=== PATIENT | male | born 1960 | race Caucasian/White ===

== ENCOUNTER 2020-09-25 18:40 | Inpatient (IN) | payer OTHER ==
--- NOTE | 2020-09-25 20:25 | PDOC.HHP ---
Hospitalist HPI - History of Present Illness Shortness of breath History of Present Illness: Mr. Bashir is a 60-year-old male patient with a history of borderline diabetes mellitus who presents with a week history of ongoing shortness of breath. He notes having gone out on a hunting trip with his friends 1 of whom had Covid eventually the whole group developed symptoms. He has been having more shortness of breath and coughleading him to visit the [facility] today. At presentation that his BP was 142/82 pulse 97 respiratory 25 saturating at 94% on 4 L oxygen. His temperature was 99.2. His CBC was generally unremarkable, he however had mild thrombocytopenia of 100, chemistry showed glucose of 201 otherwise also generally unremarkable. Serology was positive for Covid. His chest x-ray showed minimal infiltrate around the right hilum otherwise generally unremarkable. He was started on ceftriaxone, dexamethasone aspirin and received a liter of normal saline. He was then transferred here for higher level care. He has generally remained stable since his been here Hospitalist team was consulted for admission. Hospitalist ROS - Review of Systems Constitutional: denies: fever, chills, sweats, weakness ENT: denies: ear pain, ear discharge Respiratory: reports: cough, dry, shortness of breath, SOB with excertion. denies: hemoptysis Cardiovascular: denies: chest pain, palpitations, orthopnea, paroxysmal noc. dyspnea Gastrointestinal: reports: diarrhea. denies: nausea, vomiting, abdominal pain Genitourinary: denies: dysuria, frequency, incontinence, hematuria Neurological: denies: weakness, numbness, incoordination All other systems reviewed; all pertinent +/- noted in HPI/Subj - Medication Medications: No chronic medications. No known drug allergies Hospitalist History - Past Medical History Other Medical History: Borderline diabetes mellitus - Past Surgical History Past Surgical History: reports: no pertinent history - Family History Family History: reports: no pertinent history - Social History Smoking Status: Never smoker Alcohol: reports: None Living Situation: With Family Activity level: independent ambulation - Exam General Appearance: awake alert Eye: PERRL, anicteric sclera Neck: supple, symmetric, no JVD Heart: RRR, no murmur, no gallops, no rubs Respiratory: CTAB, no wheezes, no rales, no ronchi Respiratory - other findings: Requiring 4 L oxygen by nasal cannula Gastrointestinal: soft, non-tender, non-distended, normal bowel sounds Extremities: no cyanosis, no clubbing, no edema Neurological: cranial nerve grossly intact, normal sensation to touch, no focal deficits Psychiatric: normal affect, normal behavior, A&O x 3 Hospitalist Results - Labs Result Diagrams: 09/27/20 06:12 09/27/20 06:12 Hospitalist H&P A/P - Plan Plan: This is a 60-year-old male patient otherwise previously healthy presenting with worsening shortness of breath of 7 days duration. Symptoms started after he went on a camping trip with his friends out of work C ovid. His Covid test is currently positive. Acute hypoxic respiratory failure Likely secondary to Covid Continue on oxygenon 4 L will wean down Continue monitoring Pneumonia due to Covid Received dexamethasonewe will continue We will start zinc and vitamin C Check D-dimer, CRP and ferritin Monitor Thrombocytopenia This is mildlikely reactive due to Covid We will monitor [id number] on arrival Possibly stress response Recent A1c 5.7 on 08/15/2020 Continue glucose monitoring. VT prophylaxisLovenox CODE STATUSfull code
--- NOTE | 2020-09-25 22:27 | PDOC.FMACP ---
Advance Care Planning - Note Summary: Advanced Care Planning was discussed. The diagnosis, prognosis and goals of care were discussed. Surrogate decision-maker is his . He is full code
[2020-09-25] MEDS ORDERED: Ondansetron PF 4 MG/2 ML Vial IVP PRN (23:00)
[2020-09-25] MEDS ORDERED: Acetaminophen 325 MG TAB PO PRN (23:00)
[2020-09-25] MEDS ORDERED: Ondansetron ODT 4 MG TAB SL PRN (23:00)
[2020-09-26 05:30] LABS: Band 7 % (5-11); Hemoglobin 15.3 g/dL (14.0-18.0); Lymphocytes 28 % (21-51); MDiff Complete? YES; Mean Corpuscular HGB CONC 33.5 g/dL (32.0-36.0); Mean Corpuscular Hemoglobin 30.1 pg (27.0-31.0); Mean Platelet Volume 7.4 fL (7.4-10.4); Monocytes 6 % (0-10); Myelocyte 1 % (0-0); Neutrophil 57 % (42-75); Platelet Count 120 thou/uL (130-400); RBC Distribution Width 12.6 % (11.5-14.5); Reactive Lymphocytes 1 % (0-10); Red Blood Cell (RBC) Count 5.07 mill/uL (4.70-6.10); White Blood Cell (WBC) Count 3.9 thou/uL (4.8-10.8)
[2020-09-26 05:33] LABS: Anion Gap 15 mmol/L (10-20); BUN (Urea Nitrogen) 22 mg/dL (8.4-25.7); Calc. Creatinine Clearance 0 mL/min (70-130); Calcium 8.9 mg/dL (7.8-10.44); Carbon Dioxide 25 mmol/L (23-31); Chloride 104 mmol/L (98-107); Glucose 270 mg/dL (80-115); Potassium 4.1 mmol/L (3.5-5.1); Sodium 140 mmol/L (136-145)
[2020-09-26 08:11] LABS: ALT (SGPT) 32 U/L (8-55); AST (SGOT) 31 U/L (5-34); Albumin 3.8 g/dL (3.4-4.8); Alkaline Phosphatase 65 U/L (40-110); Bilirubin, Direct 0.3 mg/dL (0.1-0.3); Bilirubin, Total 0.6 mg/dL (0.2-1.2); Protein, Total 6.7 g/dL (5.8-8.1)
--- NOTE | 2020-09-26 08:18 | PQF ---
CLINICAL DOCUMENTATION CLARIFICATION FORM: Dear Dr. Eric Lemus Date: 09-26-20 Please exercise your independent, professional judgment in responding to the clarification form. Clinical indicators are provided on the bottom of this form for your review. Please check appropriate box(es): [ ] Viral Sepsis due to COVID-19/PNA [ ] Severe Viral Sepsis due to COVID-19/PNA w/ Acute Hypoxic Respiratory [ ] COVID-19/PNA only no Sepsis [ ] SIRS d/t non-infectious source with acute hypoxic respiratory failure [ ] Other diagnosis [ ] Unable to determine For continuity of documentation, please document condition throughout progress notes and discharge summary. Thank You. To be completed by CDI/Coding staff for physician review: CLINICAL INDICATORS - SIGNS / SYMPTOMS / LABS / RESULTS AND LOCATION IN [facility]. H&P ([facility]): * Transferred from ED [facility] * P 97, RR 25 * O2 sat 94% on 4LNC * T 99.2 * Glucose 201 *Thrombocytopenia 100 * SOB 7 day duration * thrombocytopenia r/t COVID; hyperglycemia; RISK FACTORS / RESULTS AND LOCATION IN [place] [address] H&P ([facility]): * PNA D/T COVID positive * Borderline diabetes mellitus *Acute hypoxic respiratory failure TREATMENTS / RESULTS AND LOCATION IN [place] [address] H&P ([facility]) *transferred from [facility] ED for higher level of care * Oxygen 4LNC continue to monitor *Received dexamethasone will continue *start zinc and vitamin C CDS Signature: Amy Pickett RN, CCDS Phone #: [phone] [email or web address] This is a permanent part of the Medical Record [facility]
[2020-09-26 08:29] VITALS: BMI 37.0
[2020-09-26] MEDS ORDERED: Enoxaparin Sodium 40 MG/0.4 ML SYRINGE ONE (09:12)
[2020-09-26] MEDS ORDERED: Dexamethasone 4 mg/ml Vial ONE (09:12)
[2020-09-26] MEDS ORDERED: REMDESIVIR (EUA) 200 MG in Sodium Chloride 0.9% 250 ML 210 ML IV SCH (09:45)
[2020-09-26] MEDS: Enoxaparin Sodium 40 MG/0.4 ML SYRINGE SC SCH (10:01)
[2020-09-26] MEDS: Cholecalciferol (Vitamin D3) 400 UNITS TAB PO SCH (10:01)
[2020-09-26] MEDS: Zinc Sulfate 220 MG CAP PO SCH (10:01)
[2020-09-26] MEDS: Ascorbic Acid 500 mg Chewable Tablet PO SCH (10:01)
[2020-09-26] MEDS: Dexamethasone 4 mg/ml Vial SLOW IVP SCH (10:01)
--- NOTE | 2020-09-26 17:55 | PDOC.HOSPP ---
- Subjective Encounter Date: 09/26/20 Encounter Time: 13:00 Subjective: Patient seen for follow-up regarding acute toxic respiratory failure. He reports feeling better. - Objective Vital Signs & Weight: Weight Weight 250 lb 14.177 oz Result Diagrams: 09/26/20 04:38 09/26/20 04:38 Additional Labs: Labs and MAR reviewed by me Hospitalist ROS - Review of Systems Constitutional: reports: weakness. denies: fever, chills, sweats, malaise Respiratory: reports: cough, SOB with excertion, sputum. denies: dry, shortness of breath, hemoptysis, pleuritic pain, wheezing Cardiovascular: denies: chest pain, palpitations, orthopnea, paroxysmal noc. dyspnea, edema, light headedness - Medication Medications: Active Medications Generic Name Dose Route Start Last Admin Trade Name Freq PRN Reason Stop Dose Admin Ascorbic Acid 1,000 mg 09/26/20 09:00 09/26/20 10:01 Ascorbic Acid 500 Mg Chewable Tablet PO 1,000 mg DAILY JAIR Administration Cholecalciferol 400 units 09/26/20 09:00 09/26/20 10:01 Cholecalciferol (Vitamin D3) 400 Units Tab PO 400 units DAILY JAIR Administration Dexamethasone 8 mg 09/26/20 09:00 09/26/20 10:01 Dexamethasone 4 Mg/Ml Vial SLOW IVP 8 mg DAILY JAIR Administration Enoxaparin Sodium 40 mg 09/26/20 09:00 09/26/20 10:01 Enoxaparin Sodium 40 Mg/0.4 Ml Syringe SC 40 mg 0900 JAIR Administration Zinc Sulfate 220 mg 09/26/20 09:00 09/26/20 10:01 Zinc Sulfate 220 Mg Cap PO 220 mg DAILY JAIR Administration - Exam General Appearance: awake alert Eye: anicteric sclera ENT: moist mucosa Neck: supple Heart: RRR Respiratory: rales, rhonchi Gastrointestinal: soft, non-tender Skin: no rashes Psychiatric: normal affect, normal behavior Hosp A/P - Plan Assessment/plan: Acute hypoxic respiratory failure Secondary to COVID-19 infection. Continue supplemental oxygen as needed. Continue to observe. Pneumonia due to Covid Continue dexamethasone. Continue zinc and vitamin C Start remdesivir. I offered patient convalescent plasma. He is trying to decide. Thrombocytopenia Monitor platelet counts. [id number] on arrival Continue glucose monitoring. Start insulin if needed.
[2020-09-27 06:47] LABS: #Lymphocytes 1.2 thou/uL (1.20-3.40); #Monocytes 0.7 thou/uL (0.11-0.59); #Neutrophils 9.9 thou/uL (1.40-6.50); %Basophils 0.1 % (0.0-1.0); %Eosinophils 0.1 % (0.0-10.0); %Lymphocytes 9.8 % (21.0-51.0); %Monocytes 6.1 % (0.0-10.0); Mean Corpuscular HGB CONC 33.5 g/dL (32.0-36.0); Mean Corpuscular Hemoglobin 30.3 pg (27.0-31.0); Mean Corpuscular Volume 90.4 fL (78.0-98.0); Mean Platelet Volume 7.7 fL (7.4-10.4); Platelet Count 154 thou/uL (130-400); RBC Distribution Width 12.5 % (11.5-14.5); Red Blood Cell (RBC) Count 4.96 mill/uL (4.70-6.10); White Blood Cell (WBC) Count 11.8 thou/uL (4.8-10.8)
[2020-09-27 07:10] LABS: ALT (SGPT) 29 U/L (8-55); AST (SGOT) 34 U/L (5-34); Albumin 3.7 g/dL (3.4-4.8); Alkaline Phosphatase 65 U/L (40-110); BUN (Urea Nitrogen) 24 mg/dL (8.4-25.7); Bilirubin, Total 0.5 mg/dL (0.2-1.2); Calc. Creatinine Clearance 121 mL/min (70-130); Calcium 8.7 mg/dL (7.8-10.44); Chloride 107 mmol/L (98-107); Glucose 177 mg/dL (80-115); Potassium 4.4 mmol/L (3.5-5.1); Protein, Total 6.7 g/dL (5.8-8.1); Sodium 141 mmol/L (136-145)
[2020-09-27 07:17] LABS: Carbon Dioxide 20 mmol/L (23-31)
[2020-09-27 08:13] LABS: Anion Gap 18 mmol/L (10-20)
[2020-09-27] MEDS: Ascorbic Acid 500 mg Chewable Tablet PO SCH (10:12)
[2020-09-27] MEDS: Cholecalciferol (Vitamin D3) 400 UNITS TAB PO SCH (10:13)
[2020-09-27] MEDS: Dexamethasone 4 mg/ml Vial SLOW IVP SCH (10:13)
[2020-09-27] MEDS: Zinc Sulfate 220 MG CAP PO SCH (10:13)
[2020-09-27] MEDS: Enoxaparin Sodium 40 MG/0.4 ML SYRINGE SC SCH (10:14)
[2020-09-27] MEDS: REMDESIVIR (EUA) 100 MG in Sodium Chloride 0.9% 250 ML 230 ML IV SCH (10:19)
[2020-09-27] MEDS ORDERED: Dextrose 50% Abboject 50 ML SYRINGE SLOW IVP PRN (19:22)
[2020-09-27] MEDS ORDERED: Dextrose 5% in Water 1,000 ML IV PRN (19:22)
--- NOTE | 2020-09-27 19:23 | PDOC.HOSPP ---
- Subjective Encounter Date: 09/27/20 Encounter Time: 10:00 Subjective: Patient seen for follow-up of acute respiratory failure with hypoxia. Denies chest pain or shortness of breath. Reports cough. - Objective Vital Signs & Weight: Vital Signs (12 hours) Temp Pulse Resp BP Pulse Ox 09/27/20 16:00 98.2 F 63 18 131/69 97 09/27/20 13:42 98.1 F 86 20 151/81 H 94 L 09/27/20 08:25 98.1 F 71 18 149/77 H 95 09/27/20 08:00 95 Weight Weight 250 lb 14.177 oz Result Diagrams: 09/27/20 06:12 09/27/20 06:12 Additional Labs: I reviewed patient's labs and MAR Hospitalist ROS - Review of Systems Respiratory: reports: cough, SOB with excertion, sputum. denies: dry, shortness of breath, hemoptysis, pleuritic pain, wheezing Cardiovascular: denies: chest pain, palpitations, orthopnea, paroxysmal noc. dyspnea, edema, light headedness - Medication Medications: Active Medications Generic Name Dose Route Start Last Admin Trade Name Freq PRN Reason Stop Dose Admin Ascorbic Acid 1,000 mg 09/26/20 09:00 09/27/20 10:12 Ascorbic Acid 500 Mg Chewable Tablet PO 1,000 mg DAILY JAIR Administration Cholecalciferol 400 units 09/26/20 09:00 09/27/20 10:13 Cholecalciferol (Vitamin D3) 400 Units Tab PO 400 units DAILY JAIR Administration Dexamethasone 8 mg 09/26/20 09:00 09/27/20 10:13 Dexamethasone 4 Mg/Ml Vial SLOW IVP 8 mg DAILY JAIR Administration Enoxaparin Sodium 40 mg 09/26/20 09:00 09/27/20 10:14 Enoxaparin Sodium 40 Mg/0.4 Ml Syringe SC 40 mg 0900 JAIR Administration Remdesivir 100 mg/ Sodium 250 mls @ 250 mls/hr 09/27/20 10:00 09/27/20 10:19 Chloride IV 09/30/20 10:59 250 mls 1000 JAIR Administration Zinc Sulfate 220 mg 09/26/20 09:00 09/27/20 10:13 Zinc Sulfate 220 Mg Cap PO 220 mg DAILY JAIR Administration - Exam General Appearance: awake alert Eye: anicteric sclera ENT: normocephalic atraumatic, no oropharyngeal lesions Neck: supple Heart: RRR Respiratory: rhonchi Gastrointestinal: soft, non-tender Skin: no rashes Psychiatric: normal affect, normal behavior Hosp A/P - Plan Assessment/plan: Acute hypoxic respiratory failure Patient is clinically improving, oxygen as needed. Pneumonia due to Covid Continue dexamethasone and remdesivir. Patient is on zinc and vitamin C Thrombocytopenia Monitor platelet counts. Start Accu-Cheks and insulin sliding scale. Continue glucose monitoring. Start insulin if needed. -viral sepsis due to COVID-19 pneumonia, present on admission
[2020-09-28 06:34] LABS: ALT (SGPT) 30 U/L (8-55); AST (SGOT) 29 U/L (5-34); Albumin 3.8 g/dL (3.4-4.8); Alkaline Phosphatase 72 U/L (40-110); Bilirubin, Direct 0.3 mg/dL (0.1-0.3); Bilirubin, Total 0.6 mg/dL (0.2-1.2); Protein, Total 6.7 g/dL (5.8-8.1)
[2020-09-28] MEDS: Ascorbic Acid 500 mg Chewable Tablet PO SCH (09:24)
[2020-09-28] MEDS: Cholecalciferol (Vitamin D3) 400 UNITS TAB PO SCH (09:24)
[2020-09-28] MEDS: Dexamethasone 4 mg/ml Vial SLOW IVP SCH (09:26)
[2020-09-28] MEDS: Zinc Sulfate 220 MG CAP PO SCH (09:26)
[2020-09-28] MEDS: Enoxaparin Sodium 40 MG/0.4 ML SYRINGE SC SCH (09:26)
[2020-09-28] MEDS: REMDESIVIR (EUA) 100 MG in Sodium Chloride 0.9% 250 ML 230 ML IV SCH (12:43)
--- NOTE | 2020-09-28 16:47 | PDOC.HOSPP ---
- Subjective Encounter Date: 09/28/20 Encounter Time: 09:30 Subjective: Patient seen for follow-up regarding COVID-19 pneumonia. He denies chest pain or shortness of breath. - Objective Vital Signs & Weight: Vital Signs (12 hours) Temp Pulse Resp BP Pulse Ox 09/28/20 11:54 97.8 F 66 20 143/83 H 92 L 09/28/20 08:00 96 09/28/20 07:00 97.7 F 61 18 156/77 H 96 Weight Weight 250 lb 14.177 oz I&O: 09/27/20 09/28/20 09/29/20 06:59 06:59 06:59 Intake Total 610 Balance 610 Result Diagrams: 09/27/20 06:12 09/27/20 06:12 Additional Labs: Accuchecks 09/28/20 09/28/20 09/28/20 16:29 11:21 05:28 POC Glucose 273 H 202 H 202 H 09/27/20 20:49 POC Glucose 241 H Labs and MAR reviewed by oh Hospitalist ROS - Review of Systems Respiratory: reports: cough, dry. denies: shortness of breath, hemoptysis, SOB with excertion, pleuritic pain, sputum, wheezing Cardiovascular: denies: chest pain, palpitations, orthopnea, paroxysmal noc. dyspnea, edema, light headedness - Medication Medications: Active Medications Generic Name Dose Route Start Last Admin Trade Name Freq PRN Reason Stop Dose Admin Ascorbic Acid 1,000 mg 09/26/20 09:00 09/28/20 09:24 Ascorbic Acid 500 Mg Chewable Tablet PO 1,000 mg DAILY JAIR Administration Cholecalciferol 400 units 09/26/20 09:00 09/28/20 09:24 Cholecalciferol (Vitamin D3) 400 Units Tab PO 400 units DAILY JAIR Administration Dexamethasone 8 mg 09/26/20 09:00 09/28/20 09:26 Dexamethasone 4 Mg/Ml Vial SLOW IVP 8 mg DAILY JAIR Administration Enoxaparin Sodium 40 mg 09/26/20 09:00 09/28/20 09:26 Enoxaparin Sodium 40 Mg/0.4 Ml Syringe SC 40 mg 0900 JAIR Administration Remdesivir 100 mg/ Sodium 250 mls @ 250 mls/hr 09/27/20 10:00 09/28/20 12:43 Chloride IV 09/30/20 10:59 250 mls 1000 JAIR Administration Zinc Sulfate 220 mg 09/26/20 09:00 09/28/20 09:26 Zinc Sulfate 220 Mg Cap PO 220 mg DAILY JAIR Administration - Exam General Appearance: awake alert Eye: anicteric sclera ENT: normocephalic atraumatic Neck: supple Heart: RRR Respiratory: CTAB Gastrointestinal: soft, non-tender Skin: no rashes Psychiatric: normal affect, normal behavior Hosp A/P - Plan Assessment/plan: Acute hypoxic respiratory failure Patient continues to need supplemental oxygen Pneumonia due to Covid Continue dexamethasone and remdesivir. Continue zinc and vitamin C Thrombocytopenia Monitor platelet counts. Start Accu-Cheks and insulin sliding scale. Continue glucose monitoring. Start insulin if needed. -viral sepsis due to COVID-19 pneumonia, present on admission
[2020-09-28] MEDS: HumaLOG 300 UNITS/3 ML VIAL SC PRN ×2 (17:29→21:39)
[2020-09-29 06:54] LABS: #Basophils 0.1 thou/uL (0.0-0.2); #Lymphocytes 1.3 thou/uL (1.20-3.40); #Monocytes 0.9 thou/uL (0.11-0.59); #Neutrophils 7.4 thou/uL (1.40-6.50); %Basophils 1.1 % (0.0-1.0); %Eosinophils 0.2 % (0.0-10.0); %Lymphocytes 13.3 % (21.0-51.0); %Monocytes 9.1 % (0.0-10.0); %Neutrophils 76.2 % (42.0-75.0); Hemoglobin 15.1 g/dL (14.0-18.0); Mean Corpuscular HGB CONC 34.1 g/dL (32.0-36.0); Mean Corpuscular Hemoglobin 30.3 pg (27.0-31.0); Mean Corpuscular Volume 88.8 fL (78.0-98.0); Mean Platelet Volume 7.2 fL (7.4-10.4); Platelet Count 182 thou/uL (130-400); RBC Distribution Width 12.3 % (11.5-14.5); Red Blood Cell (RBC) Count 4.98 mill/uL (4.70-6.10); White Blood Cell (WBC) Count 9.7 thou/uL (4.8-10.8)
[2020-09-29 07:13] LABS: ALT (SGPT) 44 U/L (8-55); AST (SGOT) 36 U/L (5-34); Albumin 3.6 g/dL (3.4-4.8); Alkaline Phosphatase 70 U/L (40-110); Anion Gap 16 mmol/L (10-20); BUN (Urea Nitrogen) 29 mg/dL (8.4-25.7); Bilirubin, Direct 0.3 mg/dL (0.1-0.3); Bilirubin, Total 0.8 mg/dL (0.2-1.2); Calc. Creatinine Clearance 120 mL/min (70-130); Calcium 8.6 mg/dL (7.8-10.44); Carbon Dioxide 27 mmol/L (23-31); Chloride 105 mmol/L (98-107); Glucose 195 mg/dL (80-115); Potassium 4.5 mmol/L (3.5-5.1); Protein, Total 6.5 g/dL (5.8-8.1); Sodium 143 mmol/L (136-145)
[2020-09-29] MEDS: Enoxaparin Sodium 40 MG/0.4 ML SYRINGE SC SCH (09:09)
[2020-09-29] MEDS: Zinc Sulfate 220 MG CAP PO SCH (09:10)
[2020-09-29] MEDS: REMDESIVIR (EUA) 100 MG in Sodium Chloride 0.9% 250 ML 230 ML IV SCH (09:10)
[2020-09-29] MEDS: Dexamethasone 4 mg/ml Vial SLOW IVP SCH (09:10)
[2020-09-29] MEDS: Ascorbic Acid 500 mg Chewable Tablet PO SCH (09:10)
[2020-09-29] MEDS: Cholecalciferol (Vitamin D3) 400 UNITS TAB PO SCH (09:16)
[2020-09-29] MEDS: HumaLOG 300 UNITS/3 ML VIAL SC PRN ×3 (11:51→19:41)
--- NOTE | 2020-09-29 18:18 | PDOC.HOSPP ---
- Subjective Encounter Date: 09/29/20 Encounter Time: 10:00 Subjective: Patient seen for follow-up regarding acute hypoxic respiratory failure. Reports feeling better. Reports nonproductive cough. He denies fevers. - Objective Vital Signs & Weight: Vital Signs (12 hours) Temp Pulse Resp BP Pulse Ox 09/29/20 15:40 97.9 F 57 L 18 124/76 97 09/29/20 11:35 65 18 154/84 H 96 09/29/20 11:30 98.0 F 65 20 169/85 H 93 L 09/29/20 09:15 92 L 09/29/20 09:05 16 92 L 09/29/20 08:12 98.0 F 61 18 130/70 92 L Weight Weight 250 lb 14.177 oz I&O: 09/28/20 09/29/20 09/30/20 06:59 06:59 06:59 Intake Total 610 610 Balance 610 610 Result Diagrams: 09/29/20 06:42 09/29/20 06:42 Additional Labs: Accuchecks 09/29/20 09/29/20 09/28/20 16:21 04:14 19:22 POC Glucose 318 H 198 H 331 H Labs and MAR reviewed by ga Hospitalist ROS - Review of Systems Constitutional: denies: fever, chills, sweats, weakness, malaise Respiratory: reports: cough, dry Cardiovascular: denies: chest pain, palpitations, orthopnea, paroxysmal noc. dyspnea, edema, light headedness - Medication Medications: Active Medications Generic Name Dose Route Start Last Admin Trade Name Freq PRN Reason Stop Dose Admin Ascorbic Acid 1,000 mg 09/26/20 09:00 09/29/20 09:10 Ascorbic Acid 500 Mg Chewable Tablet PO 1,000 mg DAILY JAIR Administration Cholecalciferol 400 units 09/26/20 09:00 09/29/20 09:16 Cholecalciferol (Vitamin D3) 400 Units Tab PO 400 units DAILY JAIR Administration Dexamethasone 8 mg 09/26/20 09:00 09/29/20 09:10 Dexamethasone 4 Mg/Ml Vial SLOW IVP 8 mg DAILY JAIR Administration Enoxaparin Sodium 40 mg 09/26/20 09:00 09/29/20 09:09 Enoxaparin Sodium 40 Mg/0.4 Ml Syringe SC 40 mg 0900 JAIR Administration Remdesivir 100 mg/ Sodium 250 mls @ 250 mls/hr 09/27/20 10:00 09/29/20 09:10 Chloride IV 09/30/20 10:59 250 mls 1000 JAIR Administration Insulin Human Lispro 0 units 09/27/20 19:22 09/29/20 16:24 Humalog 300 Units/3 Ml Vial SC 5 unit .MILD SLIDING SCALE PRN Administration Mild Correctional Scale Insulin Human Lispro 0 units 09/28/20 20:17 09/28/20 21:39 Humalog 300 Units/3 Ml Vial SC 4 unit .BEDTIME SLIDING SC PRN Administration Bedtime Correctional Scale Zinc Sulfate 220 mg 09/26/20 09:00 09/29/20 09:10 Zinc Sulfate 220 Mg Cap PO 220 mg DAILY JAIR Administration - Exam General Appearance: awake alert Eye: anicteric sclera ENT: moist mucosa Neck: supple Heart: RRR Respiratory: rhonchi Gastrointestinal: soft Extremities: no clubbing Skin: no rashes Psychiatric: normal affect Hosp A/P - Plan Assessment/plan: Acute hypoxic respiratory failure Patient continues to need supplemental oxygen, will try to wean off of oxygen. Pneumonia due to Covid Patient is on dexamethasone and remdesivir. Last dose of remdesivir will be tomorrow, will reassess at that time. Continue zinc and vitamin C Thrombocytopenia Resolved -viral sepsis due to COVID-19 pneumonia, present on admission
[2020-09-30] MEDS: HumaLOG 300 UNITS/3 ML VIAL SC PRN ×4 (05:45→19:55)
[2020-09-30 06:17] LABS: #Lymphocytes 1.4 thou/uL (1.20-3.40); #Monocytes 0.6 thou/uL (0.11-0.59); #Neutrophils 7.3 thou/uL (1.40-6.50); %Basophils 0.2 % (0.0-1.0); %Eosinophils 0.3 % (0.0-10.0); %Lymphocytes 14.4 % (21.0-51.0); %Monocytes 6.8 % (0.0-10.0); %Neutrophils 78.2 % (42.0-75.0); Hemoglobin 15.5 g/dL (14.0-18.0); Mean Corpuscular HGB CONC 32.9 g/dL (32.0-36.0); Mean Corpuscular Hemoglobin 29.2 pg (27.0-31.0); Mean Corpuscular Volume 88.8 fL (78.0-98.0); Platelet Count 203 thou/uL (130-400); RBC Distribution Width 12.3 % (11.5-14.5); Red Blood Cell (RBC) Count 5.33 mill/uL (4.70-6.10); White Blood Cell (WBC) Count 9.4 thou/uL (4.8-10.8)
[2020-09-30 06:39] LABS: ALT (SGPT) 62 U/L (8-55); AST (SGOT) 39 U/L (5-34); Albumin 3.7 g/dL (3.4-4.8); Alkaline Phosphatase 73 U/L (40-110); Anion Gap 16 mmol/L (10-20); BUN (Urea Nitrogen) 30 mg/dL (8.4-25.7); Bilirubin, Direct 0.4 mg/dL (0.1-0.3); Bilirubin, Total 0.9 mg/dL (0.2-1.2); Calc. Creatinine Clearance 117 mL/min (70-130); Calcium 8.6 mg/dL (7.8-10.44); Carbon Dioxide 27 mmol/L (23-31); Chloride 103 mmol/L (98-107); Glucose 198 mg/dL (80-115); Potassium 4.3 mmol/L (3.5-5.1); Protein, Total 6.6 g/dL (5.8-8.1); Sodium 142 mmol/L (136-145)
[2020-09-30] MEDS: Zinc Sulfate 220 MG CAP PO SCH (07:58)
[2020-09-30] MEDS: Cholecalciferol (Vitamin D3) 400 UNITS TAB PO SCH (07:58)
[2020-09-30] MEDS: Ascorbic Acid 500 mg Chewable Tablet PO SCH (07:58)
[2020-09-30] MEDS: Enoxaparin Sodium 40 MG/0.4 ML SYRINGE SC SCH (07:58)
[2020-09-30] MEDS: Dexamethasone 4 mg/ml Vial SLOW IVP SCH (07:58)
[2020-09-30] MEDS: REMDESIVIR (EUA) 100 MG in Sodium Chloride 0.9% 250 ML 230 ML IV SCH (10:03)
--- NOTE | 2020-09-30 17:05 | PDOC.HOSPP ---
- Subjective Encounter Date: 09/30/20 Encounter Time: 17:03 Subjective: Patient seen for follow-up regarding hypoxic respiratory failure. He reports feeling better. Still needing supplemental oxygen, 2 L/min. - Objective Vital Signs & Weight: Vital Signs (12 hours) Temp Pulse Resp BP Pulse Ox 09/30/20 12:00 61 18 96 09/30/20 08:10 98 09/30/20 08:05 52 L 18 98 09/30/20 08:01 97.9 F 54 L 18 156/83 H 92 L Weight Weight 250 lb 14.177 oz I&O: 09/29/20 09/30/20 10/01/20 06:59 06:59 06:59 Intake Total 610 1230 Balance 610 1230 Result Diagrams: 09/30/20 05:52 09/30/20 05:52 Additional Labs: Accuchecks 09/30/20 09/30/20 09/30/20 16:05 12:21 05:38 POC Glucose 293 H 256 H 195 H 09/29/20 19:27 POC Glucose 278 H I reviewed patient's labs and MAR Hospitalist ROS - Review of Systems Respiratory: reports: cough, dry Cardiovascular: denies: chest pain, palpitations, orthopnea, paroxysmal noc. dyspnea, edema, light headedness Skin: denies: rash, lesions, harish - Medication Medications: Active Medications Generic Name Dose Route Start Last Admin Trade Name Freq PRN Reason Stop Dose Admin Ascorbic Acid 1,000 mg 09/26/20 09:00 09/30/20 07:58 Ascorbic Acid 500 Mg Chewable Tablet PO 1,000 mg DAILY JAIR Administration Cholecalciferol 400 units 09/26/20 09:00 09/30/20 07:58 Cholecalciferol (Vitamin D3) 400 Units Tab PO 400 units DAILY JAIR Administration Dexamethasone 8 mg 09/26/20 09:00 09/30/20 07:58 Dexamethasone 4 Mg/Ml Vial SLOW IVP 8 mg DAILY JAIR Administration Enoxaparin Sodium 40 mg 09/26/20 09:00 09/30/20 07:58 Enoxaparin Sodium 40 Mg/0.4 Ml Syringe SC 40 mg 0900 JAIR Administration Insulin Human Lispro 0 units 09/27/20 19:22 09/30/20 16:43 Humalog 300 Units/3 Ml Vial SC 4 unit .MILD SLIDING SCALE PRN Administration Mild Correctional Scale Insulin Human Lispro 0 units 09/28/20 20:17 09/29/20 19:41 Humalog 300 Units/3 Ml Vial SC 3 unit .BEDTIME SLIDING SC PRN Administration Bedtime Correctional Scale Zinc Sulfate 220 mg 09/26/20 09:00 09/30/20 07:58 Zinc Sulfate 220 Mg Cap PO 220 mg DAILY JAIR Administration - Exam General Appearance: awake alert ENT: normocephalic atraumatic Neck: supple Heart: RRR Respiratory: CTAB Gastrointestinal: soft, normal bowel sounds Skin: no lesions, no rashes Psychiatric: normal affect, normal behavior Hosp A/P - Plan Assessment/plan: Acute hypoxic respiratory failure Patient will need home oxygen, most likely will be able to arrange it tomorrow. Pneumonia due to Covid Patient completed remdesivir today, continue dexamethasone. Continue zinc and vitamin C Thrombocytopenia Resolved -viral sepsis due to COVID-19 pneumonia, present on admission
[2020-10-01] MEDS: HumaLOG 300 UNITS/3 ML VIAL SC PRN ×3 (05:17→15:29)
[2020-10-01 07:03] LABS: #Basophils 0.1 thou/uL (0.0-0.2); #Lymphocytes 1.5 thou/uL (1.20-3.40); #Monocytes 0.7 thou/uL (0.11-0.59); #Neutrophils 7.6 thou/uL (1.40-6.50); %Basophils 0.6 % (0.0-1.0); %Eosinophils 0.4 % (0.0-10.0); %Lymphocytes 15.6 % (21.0-51.0); %Monocytes 6.6 % (0.0-10.0); %Neutrophils 76.8 % (42.0-75.0); Hemoglobin 15.6 g/dL (14.0-18.0); Mean Corpuscular HGB CONC 34.1 g/dL (32.0-36.0); Mean Corpuscular Hemoglobin 29.9 pg (27.0-31.0); Mean Corpuscular Volume 87.8 fL (78.0-98.0); Mean Platelet Volume 7.3 fL (7.4-10.4); Platelet Count 202 thou/uL (130-400); RBC Distribution Width 12.4 % (11.5-14.5); Red Blood Cell (RBC) Count 5.22 mill/uL (4.70-6.10); White Blood Cell (WBC) Count 9.9 thou/uL (4.8-10.8)
[2020-10-01 07:20] LABS: Anion Gap 15 mmol/L (10-20); BUN (Urea Nitrogen) 29 mg/dL (8.4-25.7); Calc. Creatinine Clearance 114 mL/min (70-130); Calcium 8.6 mg/dL (7.8-10.44); Carbon Dioxide 26 mmol/L (23-31); Chloride 104 mmol/L (98-107); Glucose 188 mg/dL (80-115); Potassium 4.1 mmol/L (3.5-5.1); Sodium 141 mmol/L (136-145)
[2020-10-01] MEDS: Ascorbic Acid 500 mg Chewable Tablet PO SCH (07:42)
[2020-10-01] MEDS: Zinc Sulfate 220 MG CAP PO SCH (07:42)
[2020-10-01] MEDS: Cholecalciferol (Vitamin D3) 400 UNITS TAB PO SCH (07:42)
[2020-10-01] MEDS: Enoxaparin Sodium 40 MG/0.4 ML SYRINGE SC SCH (07:42)
[2020-10-01] MEDS: Dexamethasone 4 mg/ml Vial SLOW IVP SCH (07:43)
[2020-10-01 11:57] VITALS: TEMP 98.1
[2020-10-01 15:35] VITALS: BP 143/83
--- NOTE | 2020-10-01 15:55 | PDOC.DS.DS ---
Provider - Provider Date of Admission: 09/25/20 19:21 Date of Discharge: 10/01/20 Admitting Provider: Juan Hair MD Primary Care Physician: Rolo Quinn DO Course - Hospital Course Hospital Course: Discharge diagnosis: 1. Acute hypoxic respiratory failure 2. COVID-19 pneumonia 3. Viral sepsis due to COVID-19 pneumonia Hospital course: Patient is a pleasant 60-year-old gentleman who was admitted to the hospital on September 25, 2020 for COVID-19 pneumonia causing acute hypoxic respiratory failure. She was treated with dexamethasone, vitamin C and zinc. He also received a course of remdesivir. He improved clinically and was maintaining good oxygen saturations even with exertion. He is being discharged home in a stable condition. Many thanks for allowing me to participate in your patient's care. Please feel free to contact me with any questions or concerns. Discharge destination: Home. Total amount of time spent coordinating this discharge: 25 minutes Resuscitation Status: 09/25/20 20:25 Resuscitation Status Routine Resuscitation Status: FULL: Full Resuscitation - Labs Lab Results: 10/01/20 06:20 10/01/20 06:20 Abnormal Lab Results - Last 48 hrs 09/30/20 05:52: BUN 30 H, Direct Bilirubin 0.4 H, AST 39 H, ALT 62 H 09/30/20 05:52: MPV 7.0 L, Neutrophils % 78.2 H, Lymphocytes % 14.4 L, Neutrophils # 7.3 H, Monocytes # 0.6 H 10/01/20 06:20: BUN 29 H 10/01/20 06:20: MPV 7.3 L, Neutrophils % 76.8 H, Lymphocytes % 15.6 L, Neutrophils # 7.6 H, Monocytes # 0.7 H - Physical Exam Vitals: Vital Signs (12 hours) Temp Pulse Resp BP Pulse Ox 10/01/20 15:34 98.1 F 71 18 143/83 H 91 L 10/01/20 11:56 98.1 F 60 18 127/72 92 L 10/01/20 08:34 95 10/01/20 08:32 97.8 F 64 18 163/92 H 95 10/01/20 05:00 94 L Weight Weight 250 lb 14.177 oz Physical Exam: The patient was seen and examined on the day of discharge. Patient denies chest pain or shortness of breath. Vital signs are stable. S1 and S2 are heard. Lungs are clear to auscultation bilaterally. Plan - Discharge Medications Prescriptions: Dexamethasone 6 mg PO DAILY #5 tablet Aspirin [Ecotrin Low Strength] 81 mg PO DAILY #7 tab Ascorbic Acid [Vitamin C] 1,000 mg PO DAILY #5 tablet Zinc Sulfate [Zinc-220] 220 mg PO DAILY #5 capsule Home Medications: Medication Instructions Recorded Confirmed Type Allopurinol 1 tab PO DAILY 09/26/20 09/26/20 History Lisinopril 1 tab PO DAILY 09/26/20 09/26/20 History Ascorbic Acid [Vitamin C] 1,000 mg PO DAILY #5 tablet 09/30/20 Rx Aspirin [Ecotrin Low Strength] 81 mg PO DAILY #7 tab 09/30/20 Rx Dexamethasone 6 mg PO DAILY #5 tablet 09/30/20 Rx Zinc Sulfate [Zinc-220] 220 mg PO DAILY #5 capsule 09/30/20 Rx Allergies: No Known Drug Allergies Allergy (Verified 09/26/20 18:29) - Discharge Instructions Discharge Instructions:: Stay on diabetic diet until completing dexamethasone. Check your oxygen saturation with a pulse oximetry at home and seek medical help for saturation less than 90%. Take dexamethasone for 4 more days only. Activity:: Activity as Tolerated Nourishment:: Diabetic Diet, Heart Healthy Diet - Follow up Plan Referrals: Rolo Quinn DO [Primary Care Provider] - 3 Days Disposition: HOME Quality - Care Measures CORE MEASURES:: N/A
== END 2020-10-01 16:42 | disposition home or self-care (01) | DRG 871 ==
LOC: ERS 18:40 → ERHOLD 19:21 → T4-A 09-26 16:39
PROVIDERS: ADMIT Student in an Organized Health Care Education/Training Program; ATTEND Internal Medicine
PROC: 8E0ZXY6 Isolation (ICD-10-PCS; principal; 2020-09-25)
PROC: XW033E5 Introduction of Remdesivir Anti-infective into Peripheral Vein, Percutaneous Approach, New Technology Group 5 (ICD-10-PCS; 2020-09-26)
DX: A41.89 Other specified sepsis (principal); U07.1 COVID-19; J12.89 Other viral pneumonia; J96.01 Acute respiratory failure with hypoxia; I10 Essential (primary) hypertension; F17.200 Nicotine dependence, unspecified, uncomplicated; Z79.899 Other long term (current) drug therapy; R73.03 Prediabetes; D69.6 Thrombocytopenia, unspecified
CPT/HCPCS: 36415; 36416; 80048; 80053; 80076; 82728; 85007; 85025; 85027; 85379; 86140; 86850; 86900; 86901; 99285; J1100; J1650; J7050